=== PATIENT | male | born 1985 | race Caucasian/White ===

== ENCOUNTER 2022-05-02 13:36 | Emergency (ER) | payer BC, SELFPAY ==
[2022-05-02] MEDS ORDERED: Dexamethasone 10 MG/ML VIAL ONE (14:08)
[2022-05-02] MEDS ORDERED: Ketorolac Tromethamine 60 MG/2 ML VIAL ONE (14:08)
== END 2022-05-02 14:16 | disposition home or self-care (01) ==
LOC: BURERS 13:36
DX: M25.531 Pain in right wrist (principal); G89.29 Other chronic pain; I10 Essential (primary) hypertension
CPT/HCPCS: 96372; 99283; J1100; J1885